=== PATIENT | male | born 2000 | race Hispanic/Latino ===

== ENCOUNTER 2023-03-02 21:22 | Emergency (ER) | payer MEDICAID, OTHER ==
[~2023-03-02] VITALS: Ht 177.8 cm; Wt 129.3 kg
[2023-03-03] MEDS ORDERED: TETANUS/DIPHTHERIA TOXOID [ADULT] 0.5 ML VIAL IM ONE (02:30)
[2023-03-03] MEDS ORDERED: CEFAZOLIN SODIUM 2 GM VIAL IVPB STA (02:36)
[2023-03-03] MEDS ORDERED: AMOX1TAB16 PO (02:39)
[2023-03-03] MEDS ORDERED: IBUP-1493 PO (02:39)
[2023-03-03 04:19] VITALS: BP 122/76
== END 2023-03-03 04:16 | disposition home or self-care (01) ==
LOC: EDH 21:22
DX: S81.852A Open bite, left lower leg, initial encounter (principal); W54.0XXA Bitten by dog, initial encounter; Y93.89 Activity, other specified; Y92.89 Other specified places as the place of occurrence of the external cause; Y99.8 Other external cause status
CPT/HCPCS: 99284; 96365; 90714; 73562; 90471; J0690